=== PATIENT | male | born 1935 | race Caucasian/White ===

== ENCOUNTER 2023-12-02 20:39 | Inpatient (IN) | payer OTHER, SELFPAY ==
--- NOTE | ~2023-12-02 | CT_ITS ---
EXAMINATION: CT HEAD WITHOUT CONTRAST CLINICAL INFORMATION: Evaluate for stroke. Evaluate for osteomyelitis. Tooth infection. Abscess. COMPARISON: No relevant prior imaging. TECHNIQUE: Contiguous axial imaging was performed from the skull base to vertex without intravenous administration of contrast. This CT examination was performed using dose optimization techniques as appropriate, variously including the following: *Automated exposure control *Adjustment of mA and/or kV according to patient size (this includes techniques or standardized protocols for targeted exams where dose is matched to indication/reason for exam; i.e. extremities or head) *Use of iterative reconstruction technique DLP: 818 mGy-cm FINDINGS: There is no acute intracranial hemorrhage or abnormal extra-axial collection. No intracranial mass effect or midline shift. Lateral and third ventricles are normal. No hydrocephalus. Scattered nonspecific foci of hypoattenuation are visualized within the periventricular white matter. Thomas-white matter differentiation is otherwise preserved and there is no evidence of acute territorial infarct. The calvarium and skull base are intact. Mastoid air cells and middle ear cavities are well aerated. CT/CT head/brain wo IV con IMPRESSION: There are scattered chronic small vessel ischemic changes within the periventricular white matter. Otherwise unremarkable examination. No evidence of acute territorial infarct or hemorrhage. The maxillary and mandibular alveolar processes are not included within the [id number] of this examination. If there is a clinical concern for subperiosteal abscess in the setting of odontogenic disease then a dedicated facial CT with contrast should be obtained.
[2023-12-02 21:00] VITALS: BP 136/90; PULSE 95; RESP 16; TEMP 36.1; O2SAT 94
[2023-12-02 22:00] VITALS: BMI 20.5
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
[2023-12-03 06:50] LABS: Alanine Aminotransferase 24 U/L (0-40); Alkaline Phosphatase 94 U/L (39-117); Anion Gap 13 (12-20); Aspartate Amino Transferase 26 U/L (5-37); Bilirubin Total 0.7 mg/dL (0.0-1.0); Blood Urea Nitrogen 32 mg/dL (9-16); Calcium 9.8 mg/dL (8.4-10.2); Carbon Dioxide 27 mmol/L (22-29); Chloride 107 mmol/L (96-108); Cholesterol 241 mg/dL (<200); Creatinine Clr Calc Pharmacy 35.4; Estimated Glomerular Filt Rate 49; Glucose Fasting 111 mg/dL (60-99); HDL Cholesterol 35 mg/dL (>40); LDL Cholesterol Calculated 185 mg/dL (<100); Potassium 4.5 mmol/L (3.3-5.1); Sodium 142 mmol/L (135-145); Total Protein 7.5 g/dL (6.5-8.0); Triglycerides 107 mg/dL (<150)
[2023-12-03 08:24] VITALS: BP 124/87; PULSE 103; RESP 16; TEMP 36.3; O2SAT 92
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
--- NOTE | 2023-12-03 12:32 | P.CONHOSP_ITS ---
History of Present Illness Data of Consult Service Date: 12/03/23 Requesting physician: James Pillai Primary Care Provider: Edward Carter MD HPI Reason for consult: medical H&P 88 year old male with history of alzheimers disorder admitted to geriatric psychiatry from [facility] ED with consult placed to hospitalist service for medical H&P. Pt mumbles nonsensically but is very pleasant, unable to provide any history. History obtained from RN and [facility] records. EKG in ED shows NSR with PVCs, rate 90, no acute st/t wave abnormality. Hematology studies showed a mild normocytic anemia with h/h 12.2/36.8%. Creat/BUn normal, likely ckd stage 3 with GFR 40s, lytes normal. Glucose normal. Negative for COVID-19. Cholesterol levels quite elevated on lab draw today with total cholesterol 241, LDL 185, HDL 35. Review of Systems 2 Review of Systems: Yes Unobtainable due to mental status [facility] Medical History Hyperlipidemia Chronic kidney disease (CKD), stage III (moderate) Alzheimer's dementia Social History Household Members: None Housing: Assisted Living Facility Do you presently have visiting nurse or other home services: Yes Patient Tobacco Use Status: Never used Tobacco Use of substances other than those prescribed or required for medical reasons: Unable to respond Advance Directives: No Advance Directives Information Provided: No Do you have thoughts of harming others: None Do you have a plan to hurt others: No Plan Recently lost weight without trying: Unsure Nutrition Risks: No Nutritional Risk Poor oral hygiene: Yes Meds Allergies Allergy/AdvReac Type Severity Reaction Status Date / Time risperidone [From Risperdal] Allergy Unknown Unknown Verified 12/02/23 21:33 Active Medications: Current Medications Acetaminophen (Acetaminophen 325 Mg Tablet) 650 mg PO Q6H PRN PRN Reason: Headache/Pain Mild Scale (1-3) Al Hydroxide/Mg Hydroxide (Magnesium Hydrox/Alum Hydrox 30 Ml Oral.Susp) 30 ml PO Q6H PRN PRN Reason: Heartburn/Nausea Magnesium Hydroxide (Milk Of Magnesia 30 Ml Oral.Susp) 30 ml PO DAILY PRN PRN Reason: Constipation Trazodone HCl (Trazodone Hcl 50 Mg Tablet) 50 mg PO BEDTIME MRX1 PRN PRN Reason: Insomnia Home Medications Medication Instructions Recorded Confirmed Last Taken Type melatonin 3 mg PO BEDTIME 12/02/23 12/03/23 Unknown History quetiapine 25 PO TID 12/02/23 Unknown History Ativan 12/03/23 Unknown History Desyrel 100 mg PO BEDTIME 12/03/23 12/03/23 Unknown History olanzapine 12/03/23 Unknown History sertraline 150 mg capsule 150 mg PO DAILY 12/03/23 Unknown History Physical Exam 2 Vital Signs and Narrative: Vital Signs: Last Vital Signs Temp 97.3 F 12/03/23 08:24 Pulse 103 H 12/03/23 08:24 Resp 16 12/03/23 08:24 BP 124/87 12/03/23 08:24 Pulse Ox 92 12/03/23 08:24 O2 Del Method Room Air 12/03/23 08:24 BMI result Body Mass Index 20.5 Constitutional - Awake and Alert, No apparent distress Eyes - PERRLA, EOMI. Crusting aroung the lids bilaterally. No conjunctival injection. Cardiovascular - S1S2, RRR, No edema Respiratory - Normal lung expansion, Normal respiratory effort, No respiratory distress, CTA bilaterally Gastrointestinal - NT / ND; +BS; No rebound or guarding Extremities - no calf tenderness bilaterally, no swelling Skin - Warm/Dry Neurological - Alert & oriented x3, PERRLA, EOMs appear to be in tact tracking appropriately around room, but unable to fully assess additional CN's due to inability to follow commands/participate in neuro exam, muscle tone in BUE and BLE symmetric and strong Results Labs 12/03/23 06:11 Labs: Laboratory Results - last 24 hr 12/03/23 06:11 Anion Gap 13 Estim Creat Clear Calc 35.4 Estimated GFR 49 Fasting Glucose 111 H Calcium 9.8 Total Bilirubin 0.7 AST 26 ALT 24 Alkaline Phosphatase 94 Total Protein 7.5 Albumin 4.0 Triglycerides 107 Cholesterol 241 H LDL Cholesterol, Calc 185 H HDL Cholesterol 35 L Assessment and Plan (1) Routine medical exam: Status: Acute Plan 88 year old male with history of alzheimers disorder admitted to geriatric psychiatry from [facility] ED with consult placed to hospitalist service for medical H&P. #Alzheimers dementia -plan per psychiatry #Dry eyes -crusting around eyes without conjunctival injection. -no bacterial conjunctivitis, no indication for abx at this time -recommend warm compresses and artifical tears #CKD stage III -renal function appears baseline #HLD -LDL 186, start atorvastatin 40mg daily -would not recheck for 3-6 months #Mild normocytic anemia -likely r/t chronic disease, no intervention indicated -above transfusion threshold Thank you for allowing me to participate in this consult. Signing off at this time. Please do not hesitate to call for further questions or for any acute medical issues
[2023-12-03 14:11] VITALS: BMI 20.5
--- NOTE | 2023-12-03 14:19 | MHC.CLN ---
NUTRITION DIET=REGULAR. INTAKE APPEARS POOR. ADDING ENSURE TID TO INCREASE NUTRITIONAL INTAKE. SUPPLEMENT PROVIDES 1050 KCALS, 60 G PROTEIN. SKIN WITH REDNESS TO SACRUM AND PERIANAL AREA. FOLLOW FOR PO INTAKE. ENCOURAGE INTAKE OF MEALS AND SUPPLEMENT ABLE. SEE CLINICAL NUTRITION ASSESSMENT 12/03/23.
[2023-12-03] MEDS: QUEtiapine Fumarate 25 MG TABLET PO ×2 (14:20→21:24)
[2023-12-03] MEDS: LORazepam 1 MG TABLET PO (14:20)
[2023-12-03] MEDS: Acetaminophen 325 MG TABLET 650 MG PO (16:20)
[2023-12-03 18:00] VITALS: BP 142/91; PULSE 100; RESP 18; TEMP 36.2; O2SAT 98
[2023-12-03] MEDS: traZODone HCL 100 MG TABLET PO (21:24)
[2023-12-03] MEDS: Melatonin 3 MG TABLET 6 MG PO (21:24)
[2023-12-04] MEDS: Acetaminophen 325 MG TABLET 650 MG PO ×2 (06:00→21:06)
[2023-12-04 07:00] VITALS: BMI 19.7
[2023-12-04 11:46] VITALS: RESP 18
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
[2023-12-04] MEDS: QUEtiapine Fumarate 25 MG TABLET PO ×2 (14:41→21:03)
[2023-12-04] MEDS: LORazepam 0.5 MG TABLET PO (14:42)
[2023-12-04 18:00] VITALS: BP 117/60; PULSE 105; RESP 18; TEMP 36; O2SAT 100
[2023-12-04] MEDS: traZODone HCL 100 MG TABLET PO (21:03)
[2023-12-04] MEDS: Melatonin 3 MG TABLET 6 MG PO (21:03)
[2023-12-05] MEDS: traZODone HCL 50 MG TABLET PO (02:53)
[2023-12-05] MEDS: Mirabegron 50 MG TAB.ER.24H PO (07:42)
[2023-12-05] MEDS: LORazepam 0.5 MG TABLET PO (07:42)
[2023-12-05] MEDS: Atorvastatin Calcium 40 MG TABLET PO (07:42)
[2023-12-05] MEDS: Sertraline HCL 100 MG TABLET PO (07:42)
[2023-12-05] MEDS: QUEtiapine Fumarate 25 MG TABLET PO ×2 (07:42→20:40)
[2023-12-05 09:16] VITALS: BP 138/89; PULSE 87; RESP 16; TEMP 35.8; O2SAT 97
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
--- NOTE | 2023-12-05 12:13 | MHC.CLN ---
F/U DIET CONSISTENCY CHANGED TO PUREE ON 12/04. VARIABLE INTAKE, 0-50%. CONTINUE ENSURE TID (1050 KCALS, 60 G PROTEIN). FOLLOW FOR PO INTAKE. RD TO FOLLOW UP WEEKLY.
[2023-12-05] MEDS: Acetaminophen 325 MG TABLET 650 MG PO ×2 (12:32→20:40)
[2023-12-05] MEDS: OLANZapine ODT 10 MG TAB.RAPDIS TRANSLINGU (13:51)
[2023-12-05] MEDS: LORazepam 1 MG TABLET 2 MG PO (13:51)
--- NOTE | 2023-12-05 14:56 | PC.NURSE ---
Held 1500 Seroquel as Hunter is asleep; MD Pillai notified.
[2023-12-05] MEDS: QUEtiapine Fumarate 100 MG TABLET PO (18:30)
[2023-12-05 20:37] VITALS: BP 118/71; PULSE 80; RESP 16; TEMP 36.7; O2SAT 97
[2023-12-05] MEDS: Melatonin 3 MG TABLET 6 MG PO (20:40)
[2023-12-05] MEDS: traZODone HCL 100 MG TABLET PO (20:40)
[2023-12-06] MEDS: traZODone HCL 50 MG TABLET PO (02:23)
[2023-12-06] MEDS: Acetaminophen 325 MG TABLET 650 MG PO ×2 (03:41→21:13)
[2023-12-06] MEDS: QUEtiapine Fumarate 100 MG TABLET PO (05:41)
[2023-12-06 08:00] VITALS: BP 148/75; PULSE 65; RESP 18; TEMP 36.2; O2SAT 97
[2023-12-06] MEDS: Mirabegron 50 MG TAB.ER.24H PO (09:09)
[2023-12-06] MEDS: QUEtiapine Fumarate 25 MG TABLET PO ×2 (09:09→21:13)
[2023-12-06] MEDS: Sertraline HCL 100 MG TABLET PO (09:09)
[2023-12-06] MEDS: Atorvastatin Calcium 40 MG TABLET PO (09:09)
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
[2023-12-06 19:30] VITALS: BP 128/94; PULSE 103; RESP 20; TEMP 36.6; O2SAT 97
[2023-12-06] MEDS: traZODone HCL 100 MG TABLET PO (21:13)
[2023-12-06] MEDS: Melatonin 3 MG TABLET 6 MG PO (21:14)
[2023-12-07] MEDS: QUEtiapine Fumarate 50 MG TABLET PO (01:17)
[2023-12-07] MEDS: Acetaminophen 325 MG TABLET 650 MG PO ×2 (03:13→19:13)
[2023-12-07 09:30] VITALS: BP 132/88; PULSE 98; RESP 18; TEMP 36.6; O2SAT 97
[2023-12-07] MEDS: Mirabegron 50 MG TAB.ER.24H PO (09:50)
[2023-12-07] MEDS: QUEtiapine Fumarate 25 MG TABLET PO ×3 (09:50→19:13)
[2023-12-07] MEDS: Atorvastatin Calcium 40 MG TABLET PO (09:50)
[2023-12-07] MEDS: Sertraline HCL 100 MG TABLET PO (09:50)
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
[2023-12-07] MEDS: Melatonin 3 MG TABLET 6 MG PO (19:12)
[2023-12-07] MEDS: QUEtiapine Fumarate 25 MG TABLET 75 MG PO (19:13)
[2023-12-07] MEDS: traZODone HCL 100 MG TABLET PO (20:06)
[2023-12-07 21:10] VITALS: BP 148/85; PULSE 87; RESP 19; TEMP 36.3; O2SAT 97
[2023-12-07] MEDS: LORazepam 1 MG TABLET PO (23:45)
[2023-12-07] MEDS: OLANZapine ODT 10 MG TAB.RAPDIS TRANSLINGU (23:45)
[2023-12-08] MEDS: Mirabegron 50 MG TAB.ER.24H PO (07:46)
[2023-12-08] MEDS: Atorvastatin Calcium 40 MG TABLET PO (07:46)
[2023-12-08] MEDS: QUEtiapine Fumarate 25 MG TABLET PO ×2 (07:46→20:55)
[2023-12-08] MEDS: QUEtiapine Fumarate 50 MG TABLET PO (07:46)
[2023-12-08] MEDS: Sertraline HCL 100 MG TABLET PO (07:46)
[2023-12-08 08:25] VITALS: BP 142/76; PULSE 92; RESP 16; TEMP 36.4; O2SAT 97
[2023-12-08] MEDS: Acetaminophen 325 MG TABLET 650 MG PO ×2 (11:41→20:54)
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
[2023-12-08 18:00] VITALS: BP 113/64; PULSE 98; RESP 18; TEMP 36.7; O2SAT 96
[2023-12-08] MEDS: traZODone HCL 100 MG TABLET PO (20:55)
[2023-12-08] MEDS: Melatonin 3 MG TABLET 6 MG PO (20:55)
[2023-12-08] MEDS: QUEtiapine Fumarate 25 MG TABLET 75 MG PO (20:56)
[2023-12-09] MEDS: QUEtiapine Fumarate 50 MG TABLET PO ×2 (00:43→14:13)
[2023-12-09] MEDS: Acetaminophen 325 MG TABLET 650 MG PO ×3 (05:15→19:57)
[2023-12-09 09:03] VITALS: BP 132/82; PULSE 90; RESP 17; TEMP 36; O2SAT 98
[2023-12-09] MEDS: Atorvastatin Calcium 40 MG TABLET PO (09:09)
[2023-12-09] MEDS: Sertraline HCL 100 MG TABLET PO (09:09)
[2023-12-09] MEDS: Mirabegron 50 MG TAB.ER.24H PO (09:09)
[2023-12-09] MEDS: QUEtiapine Fumarate 25 MG TABLET PO ×2 (09:09→16:43)
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
[2023-12-09 18:00] VITALS: BP 148/71; PULSE 68; RESP 18; TEMP 36.4; O2SAT 96
[2023-12-09] MEDS: Melatonin 3 MG TABLET 6 MG PO (19:58)
[2023-12-09] MEDS: QUEtiapine Fumarate 25 MG TABLET 75 MG PO (19:59)
[2023-12-09] MEDS: traZODone HCL 100 MG TABLET PO (19:59)
[2023-12-09 21:57] VITALS: BP 148/71; PULSE 68; RESP 18; TEMP 36.4; O2SAT 96
[2023-12-10] MEDS: QUEtiapine Fumarate 50 MG TABLET PO ×2 (01:54→14:18)
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
[2023-12-10] MEDS: QUEtiapine Fumarate 25 MG TABLET PO ×2 (06:09→16:57)
[2023-12-10 08:00] VITALS: BP 152/68; PULSE 93; RESP 18; TEMP 36.8; O2SAT 96
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
--- NOTE | 2023-12-10 12:56 | PC.NURSE ---
Pt lethargic, AM meds held as well as Tylenol at 11:45. Pt in a recliner in a common area. Breathing regular, unlabored. No signs of pain or distress noted. Dr Pillai notified by Edvin and here to visit. Will continue to monitor.
[2023-12-10] MEDS: Gabapentin 100 MG CAPSULE PO ×2 (14:06→20:16)
--- NOTE | 2023-12-10 14:26 | MHC.CLN ---
F/U DIET=REGULAR, PUREE CONSISTENCY. CONTINUE ENSURE TID (1050 KCALS, 60 G PROTEIN). INTAKE VARIABLE. DID NOT EAT WELL AT BREAKFAST OR LUNCH TODAY. OTHER DAYS SHOW VARIABLE INTAKE, 0-100%. LINCOLN=14 WITH REDNESS TO SACRUM AND COCCYX. FOLLOW FOR PO INTAKE. RD TO FOLLOW UP WEEKLY.
[2023-12-10 18:00] VITALS: BP 128/79; PULSE 97; RESP 18; TEMP 37.1; O2SAT 95
[2023-12-10] MEDS: Acetaminophen 325 MG TABLET 650 MG PO (20:15)
[2023-12-10] MEDS: Melatonin 3 MG TABLET 6 MG PO (20:16)
[2023-12-10] MEDS: traZODone HCL 100 MG TABLET PO (20:16)
[2023-12-10] MEDS: QUEtiapine Fumarate 25 MG TABLET 75 MG PO (20:17)
[2023-12-11] MEDS: QUEtiapine Fumarate 50 MG TABLET PO (01:39)
[2023-12-11] MEDS: Acetaminophen 325 MG TABLET 650 MG PO ×3 (03:18→20:35)
[2023-12-11] MEDS: QUEtiapine Fumarate 25 MG TABLET PO (06:39)
[2023-12-11] MEDS: Sertraline HCL 100 MG TABLET PO (09:09)
[2023-12-11] MEDS: Atorvastatin Calcium 40 MG TABLET PO (09:09)
[2023-12-11] MEDS: Gabapentin 100 MG CAPSULE PO ×3 (09:09→20:35)
[2023-12-11] MEDS: Mirabegron 50 MG TAB.ER.24H PO (09:09)
[2023-12-11 11:00] VITALS: BP 138/70; PULSE 91; RESP 16; TEMP 36.1; O2SAT 93
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
[2023-12-11] MEDS: QUEtiapine Fumarate 25 MG TABLET 12.5 MG PO (16:42)
[2023-12-11 18:00] VITALS: BP 139/68; PULSE 99; RESP 18; TEMP 36.3; O2SAT 96
[2023-12-11] MEDS: Melatonin 3 MG TABLET 6 MG PO (20:36)
[2023-12-11] MEDS: QUEtiapine Fumarate 100 MG TABLET PO (20:36)
[2023-12-11] MEDS: traZODone HCL 100 MG TABLET PO (20:36)
[2023-12-12] MEDS: Acetaminophen 325 MG TABLET 650 MG PO ×2 (05:40→19:41)
[2023-12-12] MEDS: QUEtiapine Fumarate 25 MG TABLET 12.5 MG PO ×2 (05:41→15:24)
[2023-12-12 08:00] VITALS: BP 159/73; PULSE 90; RESP 18; TEMP 36.3; O2SAT 97
[2023-12-12] MEDS: Atorvastatin Calcium 40 MG TABLET PO (08:19)
[2023-12-12] MEDS: Gabapentin 100 MG CAPSULE PO ×3 (08:19→19:40)
[2023-12-12] MEDS: Mirabegron 50 MG TAB.ER.24H PO (08:19)
[2023-12-12] MEDS: Sertraline HCL 100 MG TABLET PO (08:19)
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
--- NOTE | 2023-12-12 14:20 | MHC.SL.SWA ---
Speech Pathologist Impression: Risk of aspiration, oropharyngeal dysphagia Risk of Aspiration Due to: Reduced Cognition Dysphasia Diet Status: No changes made to diet order Liquid Consistency and Strategies for Safe Swallow: Liquid Intake Recommendation: Thin Liquid Intake Strategies: Small Sips Solid Food Consistency: Dietary Recommendations: Pureed (NDD1) Additional Modifications to Solid Foods: Recommend CONTINUE on PUREED (NDD1) diet with THIN liquids, pills CRUSHED in PUREE. Pt requires TOTAL 1:1 ASSISTANCE feeding, provide cues with what is presented to the pt and to take small bite/sip, swallow. Check oral cavity and ensure pt had cleared bolus before presenting next bite. Monitor for small sips by presenting liquids by spoon or pinching straw. Pt must be awake and alert, attending to meal, otherwise tray to be held. Recommend close monitoring during meals. Oral Medication Intake: Crushed with Puree Please contact the pharmacy regarding appropriate crushable or liquid drug formulations that are available whenever modified delivery is recommended. Compensatory Strategies and Precautions to be Taken for Safe Swallow: Sitting Upright (90 deg) Double Swallow Small Bites and Sips Alternate Liquids/Solids Rate of Ingestion Change Oral Check Avoid Specific Foods Supervision While Eating and Drinking for Safe Swallow: Total Assistance (1:1) Foods to Avoid: Mixed textures (soups with solid ingredients, separation of thin liquid) Swallowing Recommended Treatments: Compens. Strategy Educat. Recommendation for Speech: Inpatient Speech Therapy Comment: 1-2 f/u Frequency/Duration: M-F PRN Date Range for Service Req: Timeline to reassess: Site Safety Representative Clinican/Clinical Fellow: No Supervisory Statement: I have reviewed and agree with the student/clinical fellow's documentation: N/A Speech Language Pathologist: Sonia Alvarez M.A., CCC-MARKETING ADMINISTRATIVE ASSISTANT
[2023-12-12] MEDS: traZODone HCL 100 MG TABLET PO (19:40)
[2023-12-12] MEDS: QUEtiapine Fumarate 100 MG TABLET PO (19:40)
[2023-12-12] MEDS: Melatonin 3 MG TABLET 6 MG PO (19:41)
[2023-12-12 19:52] VITALS: BP 118/57; PULSE 99; RESP 18; TEMP 36.6; O2SAT 96
[2023-12-13] MEDS: QUEtiapine Fumarate 50 MG TABLET PO ×2 (03:50→11:40)
[2023-12-13 06:00] VITALS: BP 120/67; PULSE 96; RESP 18; TEMP 36.7; O2SAT 95
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
[2023-12-13] MEDS: Gabapentin 100 MG CAPSULE PO ×3 (09:46→19:36)
[2023-12-13] MEDS: Mirabegron 50 MG TAB.ER.24H PO (09:46)
[2023-12-13] MEDS: Sertraline HCL 100 MG TABLET PO (09:47)
[2023-12-13] MEDS: Atorvastatin Calcium 40 MG TABLET PO (09:47)
[2023-12-13] MEDS: Acetaminophen 325 MG TABLET 650 MG PO ×2 (11:31→19:36)
[2023-12-13] MEDS: QUEtiapine Fumarate 25 MG TABLET 12.5 MG PO (15:30)
[2023-12-13] MEDS: QUEtiapine Fumarate 100 MG TABLET PO (19:36)
[2023-12-13] MEDS: Melatonin 3 MG TABLET 6 MG PO (19:36)
[2023-12-13] MEDS: traZODone HCL 100 MG TABLET PO (19:36)
[2023-12-13 19:44] VITALS: BP 132/107; PULSE 103; RESP 18; TEMP 36.6; O2SAT 95
[2023-12-14] MEDS: QUEtiapine Fumarate 25 MG TABLET 12.5 MG PO ×2 (05:14→15:32)
[2023-12-14 06:00] VITALS: BP 122/68; PULSE 96; RESP 18; TEMP 36.2; O2SAT 95
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
[2023-12-14] MEDS: Mirabegron 50 MG TAB.ER.24H PO (10:49)
[2023-12-14] MEDS: Atorvastatin Calcium 40 MG TABLET PO (10:50)
[2023-12-14] MEDS: Gabapentin 100 MG CAPSULE PO ×2 (10:50→15:32)
[2023-12-14] MEDS: Sertraline HCL 100 MG TABLET PO (10:50)
[2023-12-14] MEDS: Acetaminophen 325 MG TABLET 650 MG PO ×2 (10:53→20:23)
[2023-12-14 19:40] VITALS: BP 114/62; PULSE 99; RESP 16; TEMP 36.6; O2SAT 97
[2023-12-14] MEDS: Melatonin 3 MG TABLET 6 MG PO (20:21)
[2023-12-14] MEDS: QUEtiapine Fumarate 100 MG TABLET PO (20:21)
[2023-12-14] MEDS: traZODone HCL 100 MG TABLET PO (20:21)
[2023-12-15] MEDS: QUEtiapine Fumarate 25 MG TABLET 12.5 MG PO (05:57)
[2023-12-15 08:00] VITALS: BP 127/77; PULSE 100; RESP 20; TEMP 36.4; O2SAT 95
[2023-12-15] MEDS: Mirabegron 50 MG TAB.ER.24H PO (08:26)
[2023-12-15] MEDS: Sertraline HCL 100 MG TABLET PO (08:26)
[2023-12-15] MEDS: Gabapentin 100 MG CAPSULE PO (08:26)
[2023-12-15] MEDS: Atorvastatin Calcium 40 MG TABLET PO (08:26)
--- NOTE | 2023-12-15 09:25 | P.DS_ITS ---
DS: Providers Provider Date of Service: 12/15/23 Date of admission: 12/02/23 20:39 Date of discharge: 12/15/23 Primary care physician: Edward Carter MD Consults: 12/02/23 21:33 Consult to Hospitalist Routine Comment: Consulting Provider: Hospitalist Reason For Exam: Direct admission Attending physician on discharge: James Pillai DS: Diagnosis Discharge Diagnosis (1) Dementia: Status: Acute (2) Major depressive disorder: Status: Acute DS: Medications Discharge Medications Home Medications: Home Medications Medication Instructions Recorded Confirmed sertraline 150 mg capsule 150 mg PO DAILY 12/03/23 12/08/23 lorazepam 0.5 mg tablet 0.5 mg PO DAILY 12/08/23 12/08/23 mirabegron 50 mg tablet,extended 50 mg PO DAILY 12/08/23 12/08/23 release 24 hr (Myrbetriq) quetiapine 25 mg tablet 25 mg PO BEDTIME 12/08/23 12/08/23 quetiapine 50 mg tablet 50 mg PO BEDTIME 12/08/23 12/08/23 trazodone 100 mg tablet 100 mg PO BEDTIME 12/08/23 12/08/23 Mental Status Exam Mental Status Exam Patient Appearance: Appropriate Patient Orientation: Person and Situation Level of Consciousness: Awake and Appropriate Patient Behavior: Guarded and Passive Mood Description: Withdrawn Affect Description: Constricted Patient Cognition Impaired: Yes Ability to Follow Directions: Good Speech Pattern: Clear Hallucinations: None Delusions: Not Present Thought Process: Distracted and Slowed Thinking Thought Content: positive for [place], positive for Poverty of Content, positive for Thought Blocking and positive for Incoherent Judgement: Poor Data Imaging Diagnostic Imaging Impressions Head CT 12/05/23 15:12 IMPRESSION: There are scattered chronic small vessel ischemic changes within the periventricular white matter. Otherwise unremarkable examination. No evidence of acute territorial infarct or hemorrhage. The maxillary and mandibular alveolar processes are not included within the [id number] of this examination. If there is a clinical concern for subperiosteal abscess in the setting of odontogenic disease then a dedicated facial CT with contrast should be obtained. DS: Summary Hospital Course Hospital Course: The patient is an 88-year-old male with a past history of advanced dementia, who was at a certain point on hospice care, referred from facility for exacerbation of agitation and disorganized behavior. He was assessed in the emergency room and transferring to this facility for psychiatric stabilization. Please see the HPI of the admission note for further details. On admission we assessed him and the patient was nearly nonverbal, agitated unable to have a logical conversation. We gather collateral information and talk with his family and , it was clear that the patient had episodes of pain so we did a full workout. Eventually we kept him on Tylenol schedule and improved he is level of agitation. Also we added Depakote and later on gabapentin for chronic pain with for improvement. The patient was assessed by the occupational therapist and physical therapy was clear that the patient needs help with all his ADL less. His level of dementia is very advanced dementia the family agreed on transferring him to a suitable facility. The patient's mood improved, he was pleasantly confused cooperative and pleasant ready for discharge. Time spent discussing smoking cessation with patient: 3 to 10 minutes Status at Discharge Cognitive/behavioral status at discharge: Very impaired at baseline nearly nonverbal Functional status at discharge: bed bound Overall status at discharge: patient is back to baseline Time Spent with Patient Time attestation: Total time managing care of this patient today __30__ minutes. Time spent: Less than 30 minutes Discharge Plan Discharge Anticipated Discharge Date/Time: 12/15/23 10:00 Patient Disposition: Hospice - Home Discharge Diagnosis: Dementia Major depressive disorder Referrals: Edward Carter MD [Primary Care Provider] - 1 Week Discharge Medications: New atorvastatin 40 mg Tablet 40 mg PO DAILY 30 Days Qty: 30 0RF acetaminophen 325 mg Tablet 650 mg PO Q6H PRN (Reason: Headache/Pain Mild Scale (1-3)) Qty: 60 0RF acetaminophen 325 mg Tablet 650 mg PO Q8H Qty: 90 0RF quetiapine 25 mg Tablet 12.5 mg PO BID@0630,1630 30 Days Qty: 30 0RF sertraline 100 mg Tablet 100 mg PO DAILY 30 Days Qty: 30 0RF quetiapine 100 mg Tablet 100 mg PO BEDTIME 30 Days Qty: 30 0RF trazodone 100 mg Tablet 100 mg PO BEDTIME 30 Days Qty: 30 0RF gabapentin 100 mg Capsule 100 mg PO TID 30 Days Qty: 90 0RF Artificial Tears([id number]) 1-0.2-0.2 % Drops 1 drp ophthalmic (eye) Q4H PRN (Reason: Dry Eyes) Qty: 15 0RF quetiapine 50 mg Tablet 50 mg PO BID PRN (Reason: Agitation) 30 Days Qty: 60 0RF melatonin 3 mg Tablet 6 mg PO BEDTIME Qty: 60 0RF Continued Myrbetriq 50 mg tablet extended release 24 hr 50 mg PO DAILY Qty: 30 0RF Discontinued sertraline 150 mg Capsule 150 mg PO DAILY quetiapine 25 mg tablet 25 mg PO BEDTIME lorazepam 0.5 mg tablet 0.5 mg PO DAILY trazodone 100 mg tablet 100 mg PO BEDTIME quetiapine 50 mg tablet 50 mg PO BEDTIME Discharge Orders: Discharge Order (Routine); Ordered 12/15/23 Ordered By: James Pillai Diet: Advance to usual diet Activity on Discharge: As tolerated Stand Alone Forms: Patient Portal Discharge page Care Plan Goals: Care plan goals achieved in this admission Health Concerns: Continue treatment with outpatient providers Plan of Treatment: Continue treatment as an outpatient Assessment: The patient is an elderly male with a past history of major depressive disorder and advanced dementia who is brought into the facility for agitation we did some medication changes such as the addition of gabapentin 100 mg p.o. t.i.d. scheduled Tylenol and discontinuation of lorazepam with a low dose of Seroquel. The patient had been less agitated cooperative pleasant and ready to be transferred to another facility. At baseline the patient is very impaired.
--- NOTE | 2023-12-15 10:42 | MHC.SLORD ---
Speech Language Pathology Order Status: Per RN, [place] [facility] [place] Recommend continue w/ [facility] recommendation at next level of care (pureed diet with 1:1 feed).
[2023-12-15] MEDS: Acetaminophen 325 MG TABLET 650 MG PO (11:36)
== END 2023-12-15 12:15 | disposition hospice, home (50) | DRG 881 ==
PROVIDERS: Admitting Provider Psychiatry & Neurology Psychiatry; PCP Family Medicine; Visit Provider Psychiatry & Neurology Psychiatry
DX: F32.9 Major depressive disorder, single episode, unspecified (principal); G30.9 Alzheimer's disease, unspecified; F02.80 Dementia in other diseases classified elsewhere, unspecified severity, without behavioral disturbance, psychotic disturbance, mood disturbance, and anxiety; D63.1 Anemia in chronic kidney disease; N18.30 Chronic kidney disease, stage 3 unspecified; E78.5 Hyperlipidemia, unspecified; Z79.899 Other long term (current) drug therapy
CPT/HCPCS: 36415; 70450; 80053; 80061; 92610

== ENCOUNTER → 2023-12-02 20:39 | Outpatient (BNV) | payer OTHER, SELFPAY | PROVIDERS: Admitting Provider Psychiatry & Neurology Psychiatry; PCP Family Medicine; Visit Provider Psychiatry & Neurology Psychiatry | DX: F33.2 Major depressive disorder, recurrent severe without psychotic features (principal); F03.90 Unspecified dementia, unspecified severity, without behavioral disturbance, psychotic disturbance, mood disturbance, and anxiety | CPT/HCPCS: 99222; 99231; 99232; 99238 ==

== ENCOUNTER → 2023-12-02 20:39 | Outpatient (BNV) | payer MEDICARE, SELFPAY | PROVIDERS: Admitting Provider Psychiatry & Neurology Psychiatry; PCP Family Medicine; Visit Provider Physician Assistant | DX: Z02.2 Encounter for examination for admission to residential institution (principal) | CPT/HCPCS: 99429 ==